=== PATIENT | male | born 1940 | race Caucasian/White ===

== ENCOUNTER → 2020-08-25 | Outpatient (CLI) | payer MEDICARE, OTHER ==
[~2020-08-25] MED LIST: AMARYL 2MG TABLE2 MG PO; ANTIVERT 12.512.5 MG PO; CORTISPORIN OTI10 M1 EARLF; DUREZOL5 ML EYERT; ECOTRIN81 MG PO; JANUVIA50 MG PO; NORVASC 5 MG TAB5 MG PO; PROLENSA3 ML EYERT; PROTONIX40 MG PO; ZOCOR10 MG PO
== END ==
LOC: KOH-I 08:43
DX: U07.1 COVID-19 (principal); J12.82 Pneumonia due to coronavirus disease 2019
CPT/HCPCS: 71046